=== PATIENT | female | born 1960 | race African-American/Black ===

== ENCOUNTER 2018-04-15 09:38 | Inpatient (IN) | payer OTHER ==
[2018-04-15] VITALS (10 sets, daily range): BP systolic 115–136; BP diastolic 68–88
[~2018-04-15] VITALS: Ht 162.6 cm; Wt 99.8 kg
[~2018-04-15 09:38] MED LIST: ACETAMINOPHEN-1 EAC1 ORAL; AMLODIPINE BESY10 MG ORAL; BENADRYL ALLERG25 M1 PO; DIAZEPAM2 MG ORAL; DYAZIDE1 CAP ORAL; FLONASE ALLERG9.9 ML NS; METOPROLOL TART25 MG ORAL; NORCO 5-325 TA1 EACH ORAL; OMEPRAZOLE20 M3 ORAL; SOMA350 MG PO; ceFAZolin sod 2 GM in D5W 110 ML IVPB ONE
[2018-04-15] MEDS ORDERED: fentaNYL 100 mcg/2 mL IV ONE (11:14)
[2018-04-15] MEDS ORDERED: Midazolam 2mg/2ml Inj ONE ×2 (11:15→11:50)
[2018-04-15] MEDS ORDERED: Ketamine 500mg Inj ONE (11:15)
[2018-04-15] MEDS ORDERED: Dexamethasone 4mg/ml vial ONE (11:18)
[2018-04-15] MEDS ORDERED: Lidocaine 1% MPF 10mg/ml 5ml ONE (11:18)
[2018-04-15] MEDS ORDERED: Propofol 200mg/20ml IV ONE ×2 (11:18→17:09)
[2018-04-15] MEDS ORDERED: EPINEPHrine 1mg/1ml Amp ONE (11:31)
[2018-04-15] MEDS ORDERED: Vancomycin 1gm inj IVPB ONE (11:31)
[2018-04-15] MEDS ORDERED: Thrombin 5000 units TOPIC ONE (11:32)
[2018-04-15] MEDS ORDERED: Bupivacaine 0.5% Inj 30 ml vial INJ ONE (11:32)
[2018-04-15] MEDS ORDERED: Bacitracin 50000 Units Vial ONE (11:33)
[2018-04-15] MEDS ORDERED: NS Irrig 1000ml ONE (12:00)
[2018-04-15] MEDS ORDERED: Sterile Water Irrig 1000ml IRRIG ONE (12:00)
[2018-04-15] MEDS ORDERED: LR 1000ml ONE (12:00)
[2018-04-15] MEDS ORDERED: Zemuron 50mg/5ml Inj IV ONE (12:00)
[2018-04-15] MEDS ORDERED: Heparin 5000 units/ml inj ONE (12:54)
[2018-04-15] MEDS ORDERED: LR 1000ml 1,000 ML IVLG SCH (13:48)
--- NOTE | 2018-04-15 13:48 | Anethesia Preoperative Eval ---
Anesthesia Pre-op PMH/ROS General Date of Evaluation: Apr 15, 2018 Time of Evaluation: 11:30 Anesthesiologist: ASA Score: ASA 3 Mallampati Score Class I : Soft palate, uvula, fauces, pillars visible Class II: Soft palate, uvula, fauces visible Class III: Soft palate, base of uvula visible Class IV: Only hard plate visible Mallampati Classification: Class II Surgeon: td Diagnosis: lumbar radiculopathy Surgical Procedure: L5-S1 decompression with instrumentation Anesthesia History: none Social History: current smoker Allergies: Coded Allergies: SULFA (SULFONAMIDE ANTIBIOTICS) (Verified Allergy, Unknown, SHORTNESS OF BREATH, 04/14/18) ASPIRIN (Verified Adverse Reaction, Intermediate, increase heartrate; panic attack, 04/14/18) Past Medical History Cardiovascular: Reports: HTN; Denies: CAD, [place], valve dz, arrhythmia, other Pulmonary: Denies: asthma, COPD, MARGARITA, other Gastrointestinal/Genitourinary: Denies: GERD, CRI, ESRD, other Neurologic/Psychiatric: Reports: depression/anxiety; Denies: dementia, CVA, TIA, other Endocrine: Denies: DM, hypothyroidism, steroids, other HEENT: Denies: cataract (L), cataract (R), glaucoma, WILTON (L), WILTON (R), other Hematology/Immune: Denies: anemia, DVT, bleeding disorder, other Musculoskeletal/Integumentary: Denies: OA, RA, DJD, DDD, edema, other Other: obesity PSxH Narrative: shoulder, ankle Anesthesia Pre-op Phys. Exam Physician Exam Last Vital Signs Date Time Temp Pulse Resp B/P (MAP) Pulse Ox O2 Delivery O2 Flow Rate FiO2 04/15/18 10:23 97.6 84 18 136/86 96 Room Air 97.6 Constitutional: NAD Cardiovascular: RRR Respiratory: CTA Gastrointestinal: S/NT/ND Airway Exam Mallampati Score: Class II MO: full ROM: full Teeth: intact Dentures: no upper, no lower Anesthesia Pre-op A/P Labs hct 38.4, k+ 3.9 Risk Assessment & Plan Assessment: asa 3 Plan: ETGA Status Change Before Surgery: No Pre-Antibiotics Drug: ancef 3 gra Given Within 1 Hr of Incision: Yes Time Given: 12:30 Lindsey Shane M.D. Apr 15, 2018 13:48
[2018-04-15] MEDS ORDERED: Labetalol 5mg/ml 20ml vial IV PRN ×2 (14:00→19:30)
[2018-04-15] MEDS ORDERED: fentaNYL 100 mcg/2 mL IV PRN ×2 (14:00→19:30)
[2018-04-15] MEDS ORDERED: DiphenhydrAMINE 50mg/ml Inj IVP PRN ×2 (14:00→19:30)
[2018-04-15] MEDS ORDERED: Midazolam 2mg/2ml Inj IVP PRN (14:00)
[2018-04-15] MEDS ORDERED: Hydromorphone 0.5mg/0.5ml inj IVP PRN (14:00)
[2018-04-15] MEDS ORDERED: Metoclopramide 10mg/2ml Inj IVP PRN ×2 (14:00→19:30)
[2018-04-15] MEDS: Midazolam 2mg/2ml Inj IVP PRN ×2 (18:12→19:12)
--- NOTE | 2018-04-15 18:13 | Pre-Procedure Note/Attestation ---
Pre-Procedure Note/Attestation Complete Prior to Procedure Procedure Narrative: transformanal interbody fusion andn decompression and instrumentation at L5-S1 with bone marrow aspiration Indications for Procedure Pre-Operative Diagnosis: lumbar spondylosis and spondylolisthesis and radiculopathy Attestation I attest that I discussed the nature of the procedure; its benefits; risks and complications; and alternatives (and the risks and benefits of such alternatives ), prior to the procedure, with the patient (or the patient's legal circulation representative). I attest that, if there was a reasonable possibility of needing a blood transfusion, the patient (or the patient's legal circulation representative) was given the [place] [employer] [facility] [employer] [facility] standardized written summary, pursuant to the Michael Jennifer Blood Safety Act ([place] Health and Safety Code # 1645, as amended). I attest that I re-evaluated the patient just prior to the surgery and that there has been no change in the patient's H&P, except as documented below: Pravin Aden MD Apr 15, 2018 18:13
--- NOTE | 2018-04-15 18:18 | Brief Operative Note ---
Immediate Post Operative Note Operative Note Pre-op Diagnosis: lumbar spondylosis and spondylolisthesis and radiculopathy Procedure: tlif l5s1 with instrumentation and decompression adn bone marrow aspiration Post-op Diagnosis: same as pre-op Findings: consistent w/pre-op dx studies Surgeon: Keiko Additional Surgeons: Piedad Anesthesiologist: Anesthesia: general Specimen: yes Complications: none Condition: stable Fluids: 1800cc crystalloid Estimated Blood Loss: volume - 300cc Drains: hemovac Implant(s) used?: Yes Pravin Aden MD Apr 15, 2018 18:18
--- NOTE | 2018-04-15 19:04 | Immediate Post-Op Evaluation ---
Immediate Post-Op Evalulation Immediate Post-Op Evalulation Procedure: TLIF L5-S1 w/ instrumentation and decompression and bone marrow aspiraion Date of Evaluation: Apr 15, 2018 Time of Evaluation: 18:47 IV Fluids: LR 1800ml Blood Products: 0 Estimated Blood Loss: 300ml Urinary Output: 300ml Blood Pressure Systolic: 129 Blood Pressure Diastolic: 69 Pulse Rate: 100 Respiratory Rate: 20 O2 Sat by Pulse Oximetry: 98 Temperature (Fahrenheit): 97.2 Pain Score (1-10): 0 Nausea: No Vomiting: No Complications none Patient Status: awake, patent, none Hydration Status: adequate Drug: ancef 3 grams Given Within 1 Hr of Incision: Yes Time Given: 12:30 Lindsey Shane M.D. Apr 15, 2018 19:04
[2018-04-15] MEDS: Hydromorphone 0.5mg/0.5ml inj IVP PRN ×2 (19:12→19:39)
[2018-04-15] MEDS ORDERED: Norco 5mg/325mg tab ORAL PRN (21:30)
[2018-04-15] MEDS ORDERED: Morphine Sulfate 4mg/ml Inj SUBQ PRN (21:30)
[2018-04-15] MEDS ORDERED: Naloxone 0.4mg/ml Inj IVP PRN (21:30)
[2018-04-15] MEDS: Morphine Sulfate 4mg/ml Inj SUBQ PRN (21:43)
[2018-04-15] MEDS: D5 1/2NS 1,000 ML IV SCH (21:47)
[2018-04-15] MEDS: ceFAZolin sod 1 GM in D5W 110 ML IV SCH (21:48)
[2018-04-15] MEDS ORDERED: HYDROcodone/Acetamin 7.5/325 tab ORAL PRN (22:00)
[2018-04-16] VITALS: BP 120/78
[2018-04-16] MEDS: Morphine Sulfate 4mg/ml Inj SUBQ PRN ×5 (01:02→19:02)
--- NOTE | 2018-04-16 02:15 | Operative Note - Dictated ---
DATE OF OPERATION: 04/15/2018 PREOPERATIVE DIAGNOSIS: L5-S1 spondylolisthesis with disc collapse, disc protrusion, neural foraminal stenosis and lower extremity radiculopathy. POSTOPERATIVE DIAGNOSIS: L5-S1 spondylolisthesis with disc collapse, disc protrusion, neural foraminal stenosis, and lower extremity radiculopathy. PROCEDURE PERFORMED: 1. Laminectomy at L5-S1 with foraminotomy. 2. Posterolateral fusion at L5-S1. 3. Posterior interbody fusion at L5-S1. 4. Placement of PEEK interbody device at L5-S1. 5. Bone marrow aspiration right posterior iliac crest. 6. Placement of allograft and local autograft for arthrodesis. 7. Microscope for microdissection. SURGEON: Pravin Aden M.D. CO-SURGEON: Darien Herbert M.D. ANESTHESIA: General endotracheal anesthesia. ANESTHESIOLOGIST: Lindsey Shane M.D. INTRAOPERATIVE FINDINGS: Spondylolisthesis at L5-S1 with disc prolapse, disc protrusion, central stenosis, severe lateral recess stenosis, and foraminal stenosis. FLUIDS: 800 mL of crystalloid. EBL: 300 mL. INDICATIONS: This is a pleasant lady who had failed nonoperative treatment and option for above treatment was given. Risks, alternatives, and benefits were discussed with the patient at length. Preop xrays lumbar with flexion and extension views revealed about 7 mm spondylolisthesis with motion on the flexion and extension views. Risks include anesthesia complications including , medical complications including liver, kidney, cardiopulmonary deficits, bleeding, infection, neurovascular injury, CSF leak, nerve root injury, pars fracture, instability, screw cutoff, screw failure, paralysis as well as other complications. The patient understood and wished to proceed. DESCRIPTION OF OPERATION: The patient was brought into the operating room supine on a stretcher. Subsequently, appropriate IV lines were placed and a 3 g of Ancef was administered. A surgical time-out was called. Anesthesia was induced and the patient was successfully intubated. Sequential compression devices were placed onto the bilateral lower extremities. The patient was gently turned prone on the Anthony frame table. All bony prominences were well padded and the abdomen was assured to lay freely. The L5-S1 interspace was positively identified via fluoroscopy and an indelible marker was used to pura the midline. The patient was prepped and draped in the usual sterile fashion with alcohol, chlorhexidine scrub, ChloraPrep, and Ioban draping. Az and Dr. Herbert were prepped and gowned as well. At this point, the intraoperatively sterilely draped microscope was brought into the field and a midline incision was carried out at L5-S1. Please note, previously a Machado was placed under sterile conditions. Now with monopolar cautery, dissection was carried out to the L5-S1 level. The transverse process of L5 and sacral ala were dissected, radiopaque markers were placed, and the L5-S1 level was positively identified. There was a left-sided pars fracture at L5 and retractors were set into place. Attention was diverted first doing the laminectomy with a Leksell rongeur, high-speed drill as well as #2 through #5 Kerrison punches and laminectomy was carried out. There was central stenosis and significant lateral recess stenosis bilaterally as well as foraminal stenosis for the exiting L5 nerve root. A complete facetectomy on the left side was accomplished with a high-speed drill, and a pedicle to pedicle decompression was accomplished and skeletonization of the L5 and S1 pedicles was done. The L5 nerve root was protected and completely decompressed. Valsalva 40 mmHg was done. There was no CSF leak and at this point, attention was diverted to doing the radical diskectomy. At this point, a nerve root retractor was used to medially retract the neural elements, the hemostasis was achieved with bipolar cautery and FloSeal, and a #11 blade was used to make a box incision into the disk. There was a significant disc protrusion as well causing impingement of the neural elements as well as the traversing and exiting L5 and S1 nerve roots. With the use of shaver instruments, box curettes, as well as Darrick curette and pituitary rongeurs, a radical diskectomy at L5-S1 was done. Endplate cartilage was removed. Endplate bone was well preserved, and at this point, a trial from the Caseroer System was used and a PEEK interbody device measuring 22 x 8 mm in height with 6 degrees of lordosis was chosen. Now, via a separate fascial incision and a Jamshidi needle, a bone marrow aspiration of the right posterior iliac crest was done with 30 mL of bone marrow aspirate, which was spun down for plasma and later implanted into the interbody space with [place] as well as local autograft as well as bone morphogenic protein. This was also packed into the PEEK interbody device, which was tamped into place at L5-S1 with recreation of disk height as well as excellent apposition against the endplates, which looked to be in excellent position on the AP and lateral fluoroscopy images. Once this was accomplished, attention was diverted to placement of the pedicle screws and now with pedicle Finders, the center of the pedicles at L5 and S1 bilaterally was found, ball-tip probes were used. There were no cortical breaches. Appropriate-sized taps was used and the following pedicle screws were successfully placed bilaterally at L5 6.5 x 45 mm and bilaterally at S1 7.5 x 40 mm, each screw had excellent purchase and was in good position via biplanar fluoroscopy. Once this was accomplished, microdissection of the nerve roots was done bilaterally and a complete laminectomy was accomplished and a lateral recess decompression on the contralateral right side for the exiting right L5 and S1 nerve roots. Once this was accomplished, local autograft, allograft, [place]uda putty as well as bone marrow aspirate was used for a posterolateral arthrodesis after complete decortication was done. The bone graft was protected. The wound was copiously irrigated with triple antibiotic solution. Please note that also the disk space was irrigated multiple times before implantation of hardware, and now attention was diverted to placement of rods. Two 40 mm rods, lordotic, were placed. Set screws were placed. There was no cross threading and at this point, attention was diverted to closure. Hemostasis was achieved with bipolar cautery, Gelfoam, thrombin and a large subfascial Hemovac drain was placed. The dorsal lumbar fascia was closed with #1 Vicryl sutures in a watertight interrupted fashion. The subdermal layer was closed with 2-0 Vicryl sutures. Final AP and lateral fluoroscopy was done, revealed all instrumentation to be in good position. All sponge, needle, and instrument counts were correct. The skin was closed with Dermabond. Sterile dressing tape was placed. The patient was turned supine. There were no complications during the case. The patient was extubated, was taken to the recovery room in stable condition, and found to be neurovascularly intact. Pravin Aden M.D. DR: KASHMIR JOB#: [id number] CC: CLAUDE
[2018-04-16] MEDS: D5 1/2NS 1,000 ML IV SCH (04:06)
[2018-04-16] MEDS: ceFAZolin sod 1 GM in D5W 110 ML IV SCH ×2 (04:06→12:08)
[2018-04-16 05:37] VITALS: BP 122/70
[2018-04-16 08:00] VITALS: BP 119/71
[2018-04-16] MEDS: Docusate 100mg cap ORAL SCH ×2 (08:34→18:24)
[2018-04-16 10:17] LABS: BASOPHILS % (AUTO) 0.5 % (0.0-2.0); HEMATOCRIT 34.6 % (37.0-47.0); HEMOGLOBIN 11.7 G/DL (12.0-16.0); LYMPHOCYTES % (AUTO) 9.5 % (20.0-45.0); MEAN CORPUSCULAR VOLUME 90 FL (80-99); MONOCYTES % (AUTO) 7.2 % (1.0-10.0); NEUTROPHILS % (AUTO) 82.7 % (45.0-75.0); PLATELET COUNT 258 K/UL (150-450); RED BLOOD COUNT 3.84 M/UL (4.20-5.40); RED CELL DISTRIBUTION WIDTH 11.9 % (11.6-14.8); WHITE BLOOD COUNT 10.6 K/UL (4.8-10.8)
[2018-04-16] MEDS: HYDROcodone/Acetamin 7.5/325 tab ORAL PRN ×4 (10:29→21:54)
[2018-04-16 12:00] VITALS: BP 117/77
--- NOTE | 2018-04-16 12:58 | Diagnostic Imaging Report ---
Indication: Lumbar fusion and intraoperative imaging Comparison: None Findings: 7 fluoroscopic views of the lumbar spine were obtained. Images show L5-S1 posterior fusion with pedicle screws and fusion rods. IMPRESSION: Intraoperative imaging
--- NOTE | 2018-04-16 15:08 | History and Physical ---
History of Present Illness General Date patient seen: Apr 16, 2018 Present Illness HPI 58 year old female with lumbar spondylosis and spondylolisthesis and radiculopathy admitted for tlif l5s1 with instrumentation and decompression, bone marrow aspiration. Post operatively pt is admitted to surgical floor for post op care. Allergies: Coded Allergies: SULFA (SULFONAMIDE ANTIBIOTICS) (Verified Allergy, Unknown, SHORTNESS OF BREATH, 04/14/18) ASPIRIN (Verified Adverse Reaction, Intermediate, increase heartrate; panic attack, 04/14/18) Medication History Scheduled Amlodipine Besylate* (Amlodipine Besylate*), 10 MG ORAL DAILY, (Reported) Carisoprodol* (Soma*), 350 MG PO HS, (Reported) Diphenhydramine Hcl (Benadryl Allergy), 25 MG PO PRN, (Reported) Fluticasone Propionate (Flonase Allergy Relief), 9.9 ML NS PRN, (Reported) Metoprolol Tartrate* (Metoprolol Tartrate*), 25 MG ORAL PRN, (Reported) Omeprazole (Omeprazole), 20 MG ORAL DAILY, (Reported) Triamterene/Hctz (Triamterene-Hctz 37.5-25 mg Cp), 1 CAP ORAL DAILY, (Reported) Scheduled PRN Acetaminophen With Codeine (T#3) (Tylenol #3 Tab*), 1 TAB ORAL BID PRN for For Pain, (Reported) Diazepam* (Diazepam*), 2 MG ORAL HS PRN for ANXIETY, (Reported) Hydrocodone Bit/Acetaminophen 5-325* ([place] 5-325*), 1 TAB ORAL Q6H PRN for For Pain, (Reported) Patient History Healthcare decision maker n/a Resuscitation status Full Code Advanced Directive on File No Past Medical/Surgical History Past Medical/Surgical History: (1) Lumbar radiculopathy Review of Systems All Other Systems: negative except mentioned in HPI Physical Exam General Appearance: WD/WN Lines, tubes and drains: peripheral HEENT: normocephalic, atraumatic Neck: non-tender, supple Respiratory/Chest: chest wall non-tender, lungs clear Cardiovascular/Chest: normal peripheral pulses, normal rate Abdomen: normal bowel sounds, non tender Genitourinary/Rectal: normal genital exam Last 24 Hour Vital Signs Date Time Temp Pulse Resp B/P (MAP) Pulse Ox O2 Delivery O2 Flow Rate FiO2 04/16/18 12:00 100.0 94 21 117/77 97 Nasal Cannula 2.0 100.0 04/16/18 10:29 99.7 04/16/18 08:00 99.7 91 20 119/71 97 Nasal Cannula 2.0 99.7 04/16/18 06:37 98.6 98.6 04/16/18 05:37 100.0 87 19 122/70 97 Nasal Cannula 2.0 100.0 04/16/18 00:00 98.9 88 19 120/78 97 Nasal Cannula 2.0 98.9 04/15/18 21:24 96 Nasal Cannula 3.0 04/15/18 21:24 Nasal Cannula 3.0 04/15/18 20:25 98.4 94 18 129/82 95 Nasal Cannula 2.0 98.4 04/15/18 20:06 97.6 04/15/18 20:01 97.6 94 18 123/68 96 Nasal Cannula 3.0 97.6 04/15/18 19:45 92 17 122/71 95 Nasal Cannula 3.0 04/15/18 19:39 97.3 04/15/18 19:30 92 20 119/88 96 Nasal Cannula 3.0 04/15/18 19:20 98 22 126/82 95 Simple Mask 6.0 04/15/18 19:12 97.3 04/15/18 19:10 101 22 123/71 99 Simple Mask 6.0 04/15/18 19:04 207.0 100 20 98 04/15/18 19:00 100 24 123/71 95 Simple Mask 6.0 04/15/18 18:55 97.3 101 28 115/68 96 Simple Mask 6.0 97.3 04/15/18 18:47 97.3 100 27 126/69 98 Simple Mask 6.0 97.3 Intake and Output 04/15/18 04/16/18 19:00 07:00 Intake Total 1800 ml 1400 ml Output Total 600 ml 1300 ml Balance 1200 ml 100 ml Intake Oral 400 ml IV Total 1800 ml 1000 ml Output Urine Total 300 ml 1100 ml Drainage Total 200 ml Estimated Blood Loss 300 ml # Voids 1 Laboratory Tests Test 04/16/18 06:32 White Blood Count 10.6 K/UL (4.8-10.8) Red Blood Count 3.84 M/UL (4.20-5.40) L Hemoglobin 11.7 G/DL (12.0-16.0) L Hematocrit 34.6 % (37.0-47.0) L Mean Corpuscular Volume 90 FL (80-99) Mean Corpuscular Hemoglobin 30.5 PG (27.0-31.0) Mean Corpuscular Hemoglobin Concent 33.8 G/DL (32.0-36.0) Red Cell Distribution Width 11.9 % (11.6-14.8) Platelet Count 258 K/UL (150-450) Mean Platelet Volume 6.0 FL (6.5-10.1) L Neutrophils (%) (Auto) 82.7 % (45.0-75.0) H Lymphocytes (%) (Auto) 9.5 % (20.0-45.0) L Monocytes (%) (Auto) 7.2 % (1.0-10.0) Eosinophils (%) (Auto) 0.0 % (0.0-3.0) Basophils (%) (Auto) 0.5 % (0.0-2.0) Height (Feet): 5 Height (Inches): 4.00 Weight (Pounds): 220 Medications Current Medications Medications (Trade) Dose Ordered Sig/Dayne Route PRN Reason Start Time Stop Time Status Last Admin Dose Admin Acetaminophen (Tylenol) 650 mg Q4H PRN ORAL headache or temp>101 04/15/18 21:30 05/15/18 21:29 Acetaminophen/ Hydrocodone Bitart ([place] 5/325) 1 tab Q3H PRN ORAL Mild Pain (Pain Scale 1-3) 04/15/18 21:30 04/22/18 21:29 Acetaminophen/ Hydrocodone Bitart ([place] 7.5/325) 1 tab Q3H PRN ORAL Moderate Pain (Pain Scale 4-6) 04/15/18 22:00 04/22/18 21:59 Acetaminophen/ Hydrocodone Bitart ([place] 7.5/325) 2 tab Q3H PRN ORAL Severe Pain (Pain Scale 7-10) 04/15/18 21:30 04/22/18 21:29 04/16/18 13:35 Docusate Sodium (Colace) 100 mg TWICE A DAY ORAL 04/16/18 09:00 05/16/18 08:59 04/16/18 08:34 Morphine Sulfate (Morphine Sulfate) 4 mg Q3H PRN SUBQ Severe Pain (Pain Scale 7-10) 04/15/18 21:30 04/22/18 21:29 04/16/18 07:25 Morphine Sulfate (Morphine Sulfate) 4 mg Q4H PRN SUBQ Moderate Pain (Pain Scale 4-6) 04/15/18 21:30 04/22/18 21:29 04/16/18 12:32 Naloxone HCl (Narcan) 0.1 mg PRN PRN IVP RR<12/min, pt unarousable 04/15/18 21:30 05/15/18 21:29 Assessment/Plan Problem List: (1) Lumbar radiculopathy ICD Codes: M54.16 - Radiculopathy, lumbar region SNOMED: [id number] Assessment/Plan post op care increase pain meds restoril for insomnia symptomatic treatment Heather Joseph MD Apr 16, 2018 15:08
[2018-04-16 16:00] VITALS: BP 120/71
--- NOTE | 2018-04-16 17:33 | General Progress Note ---
Progress Note Progress Note Doing well no leg pain right knee pain and mild swelling avss and a and o times 3 dressing cdi hv 50 5/5 le and ue lt intact doing well oob and pt labs r knee xrays dc hv tomorrow Pravin Aden MD Apr 16, 2018 17:33
--- NOTE | 2018-04-16 18:06 | Diagnostic Imaging Report ---
EXAM: XR Right Knee, 3 views CLINICAL HISTORY: SORE TECHNIQUE: Three views of the right knee. COMPARISON: No relevant prior studies available. FINDINGS: Bones/joints: No apparent fracture mild degenerative changes. Trace effusion. Soft tissues: Soft tissue swelling. IMPRESSION: Soft tissue swelling. No apparent fracture.
--- NOTE | 2018-04-16 19:23 | 48 Hour Post Anesthesia Eval ---
Post Anesthesia Evaluation Procedure: TLIF L5-S1 w/ instrumentation and decompression and bone marrow aspiraion Date of Evaluation: Apr 16, 2018 Time of Evaluation: 16:00 Blood Pressure Systolic: 120 0: 71 Pulse Rate: 94 Respiratory Rate: 21 Temperature (Fahrenheit): 98.9 O2 Sat by Pulse Oximetry: 97 Airway: patent Nausea: No Vomiting: No Pain Intensity: 0 Hydration Status: adequate Mental Status/LOC: patient returned to baseline Post-Anesthesia Complications: none Follow-up care needed: N/A Lindsey Shane M.D. Apr 16, 2018 19:23
[2018-04-16 20:00] VITALS: BP 119/69
[2018-04-17] VITALS: BP 117/72
[2018-04-17] MEDS: Morphine Sulfate 4mg/ml Inj SUBQ PRN ×3 (03:09→20:34)
[2018-04-17 04:00] VITALS: BP 110/68
[2018-04-17 08:00] VITALS: BP 113/77
[2018-04-17 08:29] LABS: HEMATOCRIT 33.9 % (37.0-47.0); HEMOGLOBIN 11.9 G/DL (12.0-16.0); MEAN CORPUSCULAR VOLUME 89 FL (80-99); PLATELET COUNT 234 K/UL (150-450); RED BLOOD COUNT 3.79 M/UL (4.20-5.40); RED CELL DISTRIBUTION WIDTH 11.9 % (11.6-14.8); WHITE BLOOD COUNT 12.9 K/UL (4.8-10.8)
[2018-04-17] MEDS: Docusate 100mg cap ORAL SCH ×2 (08:48→18:00)
[2018-04-17] MEDS: HYDROcodone/Acetamin 7.5/325 tab ORAL PRN ×4 (08:50→18:08)
[2018-04-17 12:00] VITALS: BP 105/64
[2018-04-17 16:00] VITALS: BP 104/59
[2018-04-17 20:00] VITALS: BP 117/82
[2018-04-18] VITALS: BP 114/80
[2018-04-18] MEDS: Morphine Sulfate 4mg/ml Inj SUBQ PRN ×3 (01:16→15:21)
[2018-04-18 04:00] VITALS: BP 116/73
[2018-04-18] MEDS: Docusate 100mg cap ORAL SCH ×2 (07:56→17:41)
[2018-04-18] MEDS: HYDROcodone/Acetamin 7.5/325 tab ORAL PRN ×4 (07:57→20:21)
[2018-04-18 08:00] VITALS: BP 112/91
[2018-04-18 12:00] VITALS: BP 113/54
[2018-04-18 16:00] VITALS: BP 105/63
[2018-04-18 20:44] VITALS: BP 131/79
[2018-04-19] MEDS: Morphine Sulfate 4mg/ml Inj SUBQ PRN ×2 (00:14→08:02)
[2018-04-19 00:15] VITALS: BP 128/74
[2018-04-19] MEDS: HYDROcodone/Acetamin 7.5/325 tab ORAL PRN ×2 (06:00→09:58)
[2018-04-19 08:00] VITALS: BP 105/74
[2018-04-19] MEDS: Docusate 100mg cap ORAL SCH (08:02)
[2018-04-19] MEDS ORDERED: NORCO 5-325 TA1 EACH ORAL (09:13)
[2018-04-19] MEDS ORDERED: SOMA350 MG PO (09:15)
--- NOTE | 2018-04-19 10:59 | General Progress Note ---
Progress Note Progress Note DOING WELL POST OP NO LEG PAIN MILD LBP AMBULATION WELL AVSS A AND O TIMES INC CDI 5/5 BLE CALVES SOFT AND NT LT INTACT A: DOING WELL DC TODAY FOLLOW UP 7 DAYS Pravin Aden MD Apr 19, 2018 10:59
--- NOTE | 2018-04-21 09:23 | Discharge Summary ---
Discharge Summary Hospital Course Date of Admission Apr 15, 2018 at 09:38 Date of Discharge Apr 19, 2018 at 11:20 Admitting Diagnosis lumbar radiculopathy Reason for Hospitalization: Elective surgery HPI Tiffany Horta is a 58 year old female who was admitted on Apr 15, 2018 at 09:38 for Lumbar Radiculopathy. Patient was admitted for elective surgery Consultations Dr. Joseph-JOHANA/johan Procedures PROCEDURE PERFORMED: 1. Laminectomy at L5-S1 with foraminotomy. 2. Posterolateral fusion at L5-S1. 3. Posterior interbody fusion at L5-S1. 4. Placement of PEEK interbody device at L5-S1. 5. Bone marrow aspiration right posterior iliac crest. 6. Placement of allograft and local autograft for arthrodesis. 7. Microscope for microdissection. Hospital Course status post surgery neurovascularly intact incision clean, dry and intact pain management addressed, pain was controlled initially Hemovac, output was closely monitored, Hemovac subsequently dc 04/17 SCD for DVT prophylaxis fall precautions ambulated with PT , safe with ambulation incentive spirometer while in the bed, encouraged to use vital signs stable ,hemodynamically stable voided freely tolerated diet , antiemetics prn bowel regimen instituted stable for discharge home discharge instruction provided outpatient follow-up with surgeon as advised FINAL DIAGNOSES lumbar spondylosis and spondylolisthesis and radiculopathy s/p TLIF L5S1 with instrumentation and decompression and bone marrow aspiration Discharge Medications Continued Medications: Carisoprodol* (Soma*) 350 Mg Tablet 350 MG PO Q8HR for muscle spasm, #40 TAB (This prescription has been renewed) Hydrocodone Bit/Acetaminophen 5-325* ([place] 5-325*) 1 Each Tablet 1 TAB ORAL Q6H for pain, #50 TAB 0 Refills (This prescription has been renewed) Discharge Condition Upon Discharge: stable Discharge Disposition Patient was discharged to Home () Discharge Instructions Discharge Instructions Special Instructions I have been assigned to complete a D/C Summary on this account. I was not involved in the patient management Kathy Sewell NP Apr 21, 2018 09:23
== END 2018-04-19 11:20 | disposition home or self-care (01) | DRG 460 ==
LOC: SDSOVERFLO 09:38 → 3E 18:16
PROC: 01NB0ZZ Release Lumbar Nerve, Open Approach (ICD-10-PCS; principal; 2018-04-15 11:30)
PROC: 0SB40ZZ Excision of Lumbosacral Disc, Open Approach (ICD-10-PCS; principal; 2018-04-15 11:30)
PROC: 0SG30AJ Fusion of Lumbosacral Joint with Interbody Fusion Device, Posterior Approach, Anterior Column, Open Approach (ICD-10-PCS; principal; 2018-04-15 11:30)
DX: M51.17 Intervertebral disc disorders with radiculopathy, lumbosacral region (principal); M48.07 Spinal stenosis, lumbosacral region; M43.17 Spondylolisthesis, lumbosacral region; Z88.6 Allergy status to analgesic agent; Z88.2 Allergy status to sulfonamides
CPT/HCPCS: 36415; 72020; 76001; 85007; 85025; 86850; 86900; 86901; 87081; 94003; 94150; 94760; J2250; J2405